=== PATIENT | female | born 1995 | race Two or more races ===

== ENCOUNTER 2020-08-31 05:30 | Emergency (ER) | payer MEDICAID, OTHER ==
[~2020-08-31] VITALS: Ht 152.4 cm; Wt 59.0 kg
[2020-08-31 06:20] LABS: Basophils # (auto) 0.1 10 ^3/uL (0-0.2); Basophils % (auto) 0.4 % (0.0-2.0); Eosinophils # (auto) 0.1 10 ^3/uL (0-0.8); Eosinophils % (auto) 0.7 % (0.0-7.0); Hemoglobin 12.8 g/dL (12.2-16.2); Lymphocytes # (auto) 2.6 10 ^3/uL (0.4-5.4); Lymphocytes % (auto) 19.3 % (10.0-50.0); Mean Corpuscular Hemoglobin 29.6 pg (28.0-32.0); Mean Corpuscular Hgb Conc. 32.9 g/dL (32.0-36.0); Mean Corpuscular Volume 89.9 fL (80.0-100.0); Monocytes # (auto) 0.7 10 ^3/uL (0-1.3); Monocytes % (auto) 4.9 % (0.0-12.0); Neutrophils # (auto) 10.1 10 ^3/uL (1.6-8.6); Neutrophils % (auto) 74.7 % (37.0-80.0); Platelet Count (auto) 326 10^3/uL (140-450); Red Blood Cells 4.33 10^6/uL (4.0-5.20); Red Cell Distribution Width 14.7 % (11.8-14.3); White Blood Cell 13.5 10^3/uL (4.4-10.8)
[2020-08-31 06:42] LABS: Albumin 3.7 g/dL (3.4-5.0); Calcium 8.5 mg/dL (8.5-10.1); Potassium 3.1 mmol/L (3.5-5.1)
[2020-08-31 06:45] LABS: BUN/Creatinine Ratio 14.8; Bilirubin, Total 0.4 mg/dL (0.2-1.0); Total Protein 7.9 g/dL (6.4-8.2)
[2020-08-31] MEDS ORDERED: POTASSIUM EFFERVESENT TAB 25 MEQ PO ONE (07:00)
[2020-08-31] MEDS ORDERED: ONDANSETRON HCL 4 MG/2 ML VIAL IV ONE (07:00)
[2020-08-31] MEDS ORDERED: cefTRIAXone 1GM/50ML D5W 50 ML IV ONE (07:00)
[2020-08-31 07:33] LABS: Urine Bacteria NONE SEEN /hpf (None Seen); Urine Blood TRACE /uL (Negative); Urine Mucus FEW (None Seen); Urine Specific Gravity 1.025 (1.001-1.035); Urine WBC 4 /hpf (0 - 5)
[2020-08-31 09:15] VITALS: BP 125/69
== END 2020-08-31 09:15 | disposition home or self-care (01) ==
LOC: ER 05:30
DX: D72.829 Elevated white blood cell count, unspecified (principal); E87.6 Hypokalemia
CPT/HCPCS: 36415; 71045; 74176; 80053; 81001; 82150; 83036; 83690; 85025; 96365; 96375; 99285; J0696; J2405

== ENCOUNTER 2020-09-07 22:51 | Emergency (ER) | payer MEDICAID ==
[~2020-09-07] VITALS: Ht 152.4 cm; Wt 59.0 kg
[2020-09-07 23:58] VITALS: BP 118/93
== END 2020-09-08 03:03 | disposition left against medical advice (07) ==
LOC: ER 22:53
DX: R10.13 Epigastric pain (principal); R11.2 Nausea with vomiting, unspecified; Z53.21 Procedure and treatment not carried out due to patient leaving prior to being seen by health care provider